=== PATIENT | male | born 1980 | race Caucasian/White ===

== ENCOUNTER 2016-08-11 13:15 | Emergency (ER) | payer MEDICARE | END 2016-08-11 13:57 | disposition home or self-care (01) | LOC: ER 13:15 | DX: K04.7 Periapical abscess without sinus (principal); K02.9 Dental caries, unspecified; K05.10 Chronic gingivitis, plaque induced; F17.210 Nicotine dependence, cigarettes, uncomplicated; Z88.5 Allergy status to narcotic agent ==